=== PATIENT | male | born 2000 | race Caucasian/White ===

== ENCOUNTER 2024-02-01 18:48 | Emergency (ER) | payer MEDICAID ==
[~2024-02-01] VITALS: Ht 177.8 cm; Wt 72.0 kg
[2024-02-01 19:33] LABS: Basophils # (auto) 0 10 ^3/uL (0-0.2); Basophils % (auto) 0.2 % (0.0-2.0); Eosinophils # (auto) 0 10 ^3/uL (0-0.8); Eosinophils % (auto) 0.3 % (0.0-7.0); Lymphocytes # (auto) 1.5 10 ^3/uL (0.4-5.4)
[2024-02-01 19:35] LABS: Hematocrit 46.1 % (41.0-53.0); Hemoglobin 15.3 g/dL (13.5-17.5); Lymphocytes % (auto) 13.8 % (10.0-50.0); Mean Corpuscular Hgb Conc. 33.1 g/dL (32.0-36.0); Mean Corpuscular Volume 81.3 fL (80.0-100.0); Monocytes % (auto) 9.6 % (0.0-12.0); Neutrophils # (auto) 8.2 10 ^3/uL (1.6-8.6); Neutrophils % (auto) 76.1 % (37.0-80.0); Red Blood Cells 5.67 10^6/uL (4.5-5.90); Red Cell Distribution Width 13.7 % (11.8-14.3); White Blood Cell 10.8 10^3/uL (4.4-10.8)
[2024-02-01 19:50] LABS: Albumin 4.9 g/dL (3.2-4.8); Alkaline Phosphatase 88 U/L (46-116); Anion Gap 3 (5-15); Aspartate Aminotransferase 17 U/L (13-40); Bilirubin, Total 1.2 mg/dL (0.2-1.0); Blood Urea Nitrogen 7 mg/dL (9-23); Calcium 10.3 mg/dL (8.7-10.4); Carbon Dioxide 31 mmol/L (20-30); Chloride 107 mmol/L (98-107); Glucose 97 mg/dL (74-106); Lipase 29 U/L (12-53); Potassium 3.7 mmol/L (3.5-5.1); Sodium 141 mmol/L (136-145); Total Protein 7.9 g/dL (5.7-8.2)
[2024-02-01 19:55] LABS: Platelet Estimate Decreased
[2024-02-01 19:56] LABS: Alanine Aminotransferase 9 U/L (7-40); RBC Morphology Normal
[2024-02-01 20:58] LABS: Urine Bacteria NONE SEEN /hpf (None Seen); Urine Blood Negative /uL (Negative); Urine Clarity Clear (Clear); Urine Color Colorless (Yellow); Urine Protein, UAD 1+ (Negative); Urine Specific Gravity 1.004 (1.001-1.035); Urine Urobilinogen Normal (Negative); Urine WBC 1 /hpf (0 - 3)
[2024-02-01] MEDS ORDERED: DICY10CA PO (22:36)
[2024-02-01] MEDS ORDERED: ZOFR4T PO (22:36)
[2024-02-01] MEDS: DICYCLOMINE HCL (10MG/ML) 2 ML AMPULE IM ONE (22:58)
[2024-02-01] MEDS: ONDANSETRON ODT 4 MG TAB PO ONE (22:58)
[2024-02-01 23:03] VITALS: BP 133/75; PULSE 70; RESP 16; TEMP 98; O2SAT 96
== END 2024-02-01 23:06 | disposition home or self-care (01) ==
LOC: ER 18:48
DX: I88.0 Nonspecific mesenteric lymphadenitis (principal)
CPT/HCPCS: 36415; 74176; 80053; 81001; 83690; 85025; 96372; 99285; J0500; Q0162

== ENCOUNTER 2024-07-06 03:34 | Emergency (ER) | payer MEDICAID ==
[~2024-07-06] VITALS: Ht 175.3 cm; Wt 68.5 kg
[~2024-07-06 03:34] MED LIST: DICY10CA PO; ZOFR4T PO
[2024-07-06 04:23] LABS: Urine Bacteria FEW /hpf (None Seen); Urine Blood Negative /uL (Negative); Urine Clarity Clear (Clear); Urine Color Light-Yellow (Yellow); Urine Mucus FEW (None Seen); Urine Protein, UAD Negative (Negative); Urine Specific Gravity 1.023 (1.001-1.035); Urine Urobilinogen Normal (Negative); Urine WBC <1 /hpf (0 - 3)
[2024-07-06] MEDS: IOHEXOL 300 MG/ML 100ML BOTTLE IJ ONE (05:30)
[2024-07-06 05:45] VITALS: PULSE 63; RESP 16; O2SAT 99
[2024-07-06] MEDS: KETOROLAC TROMETH 30 MG/ML 1ML VIAL IV ONE (05:45)
[2024-07-06] MEDS: SODIUM CHLORIDE 0.9% 1,000 ML IV ONE (05:45)
[2024-07-06 05:48] LABS: Eosinophils # (auto) 0.2 10 ^3/uL (0-0.8); Monocytes # (auto) 0.6 10 ^3/uL (0-1.3); Red Cell Distribution Width 13.4 % (11.8-14.3)
[2024-07-06 05:51] LABS: Basophils # (auto) 0 10 ^3/uL (0-0.2); Basophils % (auto) 0.5 % (0.0-2.0); Eosinophils % (auto) 2.8 % (0.0-7.0); Hematocrit 47.5 % (41.0-53.0); Lymphocytes # (auto) 2.3 10 ^3/uL (0.4-5.4); Lymphocytes % (auto) 28.2 % (10.0-50.0); Mean Corpuscular Hemoglobin 27.1 pg (28.0-32.0); Mean Corpuscular Hgb Conc. 33.7 g/dL (32.0-36.0); Mean Corpuscular Volume 80.4 fL (80.0-100.0); Monocytes % (auto) 7.4 % (0.0-12.0); Neutrophils % (auto) 61.1 % (37.0-80.0); Red Blood Cells 5.91 10^6/uL (4.5-5.90); White Blood Cell 8.2 10^3/uL (4.4-10.8)
[2024-07-06 06:08] LABS: Alanine Aminotransferase 14 U/L (7-40); Albumin 4.8 g/dL (3.2-4.8); Alkaline Phosphatase 102 U/L (46-116); Anion Gap 7 (5-15); Aspartate Aminotransferase < 8 U/L (13-40); BUN/Creatinine Ratio 10.2 (10.0-20.0); Bilirubin, Total 0.6 mg/dL (0.2-1.0); Blood Urea Nitrogen 10 mg/dL (9-23); Calcium 10.3 mg/dL (8.7-10.4); Carbon Dioxide 29 mmol/L (20-30); Chloride 103 mmol/L (98-107); Glucose 87 mg/dL (74-106); Potassium 3.6 mmol/L (3.5-5.1); Sodium 139 mmol/L (136-145); Total Protein 7.8 g/dL (5.7-8.2)
[2024-07-06 06:55] LABS: Platelet Estimate Decreased
[2024-07-06 07:50] VITALS: BP 116/77; PULSE 56; RESP 17; TEMP 97.8; O2SAT 98
[2024-07-06] MEDS ORDERED: METR-344 PO (08:35)
[2024-07-06] MEDS ORDERED: CIPR-173 PO (08:35)
== END 2024-07-06 08:49 | disposition home or self-care (01) ==
LOC: ER 03:34
DX: K52.9 Noninfective gastroenteritis and colitis, unspecified (principal)
CPT/HCPCS: 36415; 74177; 80053; 81001; 85025; 96361; 96374; 99285; J1885; J7030; Q9967